=== PATIENT | male | born 1995 | race Caucasian/White ===

== ENCOUNTER 2024-03-13 04:48 | Inpatient (IN) | payer SELFPAY ==
[~2024-03-13] VITALS: Ht 177.8 cm; Wt 72.6 kg
[2024-03-13] MEDS: SODIUM CHLORIDE 0.9% 1,000 ML IV ONE (05:05)
[2024-03-13] MEDS: LORAZEPAM 2MG/ML INJ IV ONE (05:08)
[2024-03-13] MEDS: ONDANSETRON HCL 4MG/2ML INJ IV ONE (05:08)
[2024-03-13 05:27] VITALS: O2SAT 98
[2024-03-13 05:34] LABS: BASOPHILS % 0.6 % (0.0-2.0); EOSINOPHILS % 1.8 % (0.0-5.0); HEMATOCRIT. 42.6 % (42.0-52.0); HEMOGLOBIN. 14.9 g/dL (14.0-18.0); LYMPHOCYTES % 18.8 % (20.0-50.0); MEAN CORPUSCULAR HEMOGLOBIN 32.7 pg (28.0-32.0); MEAN CORPUSCULAR VOLUME 93.4 fL (80.0-94.0); MEAN PLATELET VOLUME 7.1 fl (7.4-10.4); MONOCYTES % 6.5 % (2.0-8.0); NEUTROPHILS % 72.3 % (40.0-76.0); PLATELET 313 x1000/uL (130-400); RED BLOOD CELL COUNT 4.56 mill/uL (4.7-6.1); RED CELL DISTRIBUTION WIDTH 12.5 % (11.6-14.6); WHITE BLOOD COUNT 12.1 x1000/uL (4.5-11.0)
[2024-03-13] MEDS: METOCLOPRAMIDE HCL 10MG/2ML VIAL IV ONE (05:36)
[2024-03-13 05:39] LABS: CARBON DIOXIDE 21 mEq/L (21-32); CHLORIDE 107 mEq/L (98-107); POTASSIUM 3.4 mEq/L (3.5-5.1); SODIUM 140 mEq/L (136-145)
[2024-03-13 05:40] LABS: CALCIUM 9.3 mg/dL (8.7-10.4)
[2024-03-13 05:44] LABS: CREATININE 0.8 mg/dL (0.6-1.3)
[2024-03-13 05:45] LABS: GLUCOSE 92 mg/dL (70-105); UREA NITROGEN BLOOD 14 mg/dL (9-23)
[2024-03-13 06:05] LABS: PARTIAL THROMBOPLASTIN TIME 28.4 sec (23.4-31.0); PROTHROMBIN TIME 11.3 sec (9.6-11.0)
[2024-03-13 06:43] LABS: ETHANOL BLOOD < 10 mg/dL (<10); TROPONIN I HIGH SENSITIVITY < 4 ng/L (3.0-53)
[2024-03-13 08:00] VITALS: BP 134/86; PULSE 109; RESP 20; TEMP 36.3918; O2SAT 99
[2024-03-13 09:50] VITALS: BP 134/86; PULSE 109; RESP 20; TEMP 36.418
[2024-03-13] MEDS ORDERED: CLONIDINE 0.1MG TABLET PO PRN (11:45)
[2024-03-13] MEDS ORDERED: DOCUSATE SODIUM 100MG CAPSULE PO PRN (11:45)
[2024-03-13] MEDS ORDERED: LORAZEPAM 2MG/ML INJ IV PRN (11:45)
[2024-03-13] MEDS ORDERED: ONDANSETRON HCL 4MG/2ML INJ IV PRN (11:45)
[2024-03-13] MEDS ORDERED: ACETAMINOPHEN 325MG TABLET PO PRN ×2 (11:45)
[2024-03-13] MEDS ORDERED: IPRATROPIUM/ALBUTEROL 0.5-3(2.5)MG/3ML NEB HHN PRN (11:45)
[2024-03-13 12:00] VITALS: BP 130/85; PULSE 98; RESP 20; TEMP 36.3918; O2SAT 100
[2024-03-13] MEDS: POTASSIUM CHLORIDE 20MEQ TABLET SR PO NR (12:48)
[2024-03-13] MEDS: CHLORDIAZEPOXIDE 25MG CAPSULE PO SCH (13:50)
[2024-03-13] MEDS: SODIUM CHLORIDE 0.9% 1,000 ML IV SCH (13:50)
[2024-03-13] MEDS: MVI, ADULT NO.1 10 ML, FOLIC ACID 1 MG, THIAMINE HCL 100 MG in SODIUM CHLORIDE 0.9% 1,0... IV ONE (14:05)
[2024-03-13 14:45] LABS: ALANINE AMINOTRANSFERASE 24 IU/L (10-49); ALBUMIN 4.5 g/dL (3.2-4.8); ASPARTATE AMINOTRANSFERASE 47 IU/L (<34)
[2024-03-13 14:46] LABS: BILIRUBIN DIRECT 0.2 mg/dL (<=3.0); BILIRUBIN TOTAL 0.7 mg/dL (0.1-1.0); CREATINE KINASE 841 IU/L (46-171); PHOSPHORUS 3.1 mg/dL (2.5-4.9); PROTEIN TOTAL 7.3 g/dL (6.0-8.3)
[2024-03-13 14:48] LABS: THYROID STIMULATING HORMONE 0.34 uIU/mL (0.55-4.78)
[2024-03-13 16:00] VITALS: BP 130/78; PULSE 99; RESP 18; TEMP 36.50292; O2SAT 100
[2024-03-13 20:00] VITALS: BP 132/64; PULSE 100; RESP 19; TEMP 36.78072; O2SAT 97
[2024-03-14] VITALS: BP 120/80; PULSE 69; RESP 17; TEMP 36.55848; O2SAT 89
[2024-03-14] MEDS ORDERED: MULTIVITAMINS,THER W-MINERALS TABLET PO SCH (09:00)
[2024-03-14] MEDS ORDERED: THIAMINE HCL 100MG TABLET PO SCH (09:00)
[2024-03-14] MEDS ORDERED: FOLIC ACID 1MG TABLET PO SCH (09:00)
== END 2024-03-14 03:25 | disposition left against medical advice (07) | DRG 251 ==
LOC: ER 04:48 → EDBEDREQTM 06:04 → EDBEDREQ 06:04 → 7WST 10:37
PROVIDERS: ADMIT Internal Medicine; ATTEND Internal Medicine
DX: R10.9 Unspecified abdominal pain (principal); D72.829 Elevated white blood cell count, unspecified; F10.129 Alcohol abuse with intoxication, unspecified; F14.129 Cocaine abuse with intoxication, unspecified; R00.0 Tachycardia, unspecified; Z53.29 Procedure and treatment not carried out because of patient's decision for other reasons; R25.1 Tremor, unspecified; E87.6 Hypokalemia; Z79.899 Other long term (current) drug therapy
CPT/HCPCS: 36415; 71045; 80048; 80076; 80320; 82550; 83036; 83735; 83880; 84100; 84443; 84484; 85025; 93005; 99285; J2060; J2405; J2765; J3411; J3490; J7030; G0480

== ENCOUNTER 2024-05-31 09:09 | Emergency (ER) | payer SELFPAY ==
[~2024-05-31] VITALS: Ht 172.7 cm; Wt 68.0 kg
[2024-05-31 09:14] VITALS: BP 124/78; PULSE 96; RESP 16; TEMP 36.8; O2SAT 98
[2024-05-31 10:39] VITALS: TEMP 98.8
[2024-05-31] MEDS: ACETAMINOPHEN 650MG/20.3ML UDC PO ONE (10:39)
== END 2024-05-31 11:19 | disposition home or self-care (01) ==
LOC: ER 09:16
DX: R07.89 Other chest pain (principal); F10.90 Alcohol use, unspecified, uncomplicated; F12.90 Cannabis use, unspecified, uncomplicated; F14.90 Cocaine use, unspecified, uncomplicated; Y90.9 Presence of alcohol in blood, level not specified
CPT/HCPCS: 74176; 99284